=== PATIENT | male | born 1995 | race Caucasian/White ===

== ENCOUNTER 2020-05-05 12:13 | Emergency (ER) | payer OTHER ==
[2020-05-05] MEDS ORDERED: LORazepam 2 MG/ML SDV IV ONE (12:46)
[2020-05-05] MEDS ORDERED: Metoclopramide 10 MG/2 ML SDV IVPUSH ONE (12:46)
[2020-05-05] MEDS ORDERED: Dicyclomine 10 MG Cap PO ONE (12:47)
[2020-05-05] MEDS ORDERED: cloNIDine 0.1 MG Tab PO ONE (12:51)
--- NOTE | 2020-05-05 12:51 | EDM.PDOCBH ---
ED HPI GENERAL MEDICAL PROBLEM - General Chief Complaint: Drug or Alcohol Abuse Stated Complaint: WITHDRAWAL SYMPTOMS-FENTANYL Time Seen by Provider: 05/05/20 12:46 Source of Information: Reports: Patient History Limitations: Reports: No Limitations - History of Present Illness INITIAL COMMENTS - FREE TEXT/NARRATIVE: 25-year-old male of descent presents to the ED requesting help to stop using drugs. His drug of choice has been fentanyl for the last 6 months. He usually smokes this. He has been using kratom which can buy over the Internet on intermittent basis and last used yesterday. His found out about his drug abuse and made him make a decision either stop using drugs or divorce. Patient currently has been having 3-day history of nausea vomiting and diarrhea. He has had about 6 diarrhea stools in the last 14 hours yellow and loose. Has not been able to eat. He estimates a 20 pound weight loss over the last 6 months. He states he will drink alcohol on a rare very rare occasion. Will use marijuana intermittently. Denies any history of intravenous drug abuse. He is requesting help to stop using these drugs. Onset: Other (Using drugs for the last 6 months.) Duration: Chronic, Getting Worse (Side effect profile of withdrawing from narcotics is nausea vomiting diarrhea) Location: Reports: Abdomen ( and abdominal cramping pain. Vomiting diarrhea intractable.) Quality: Reports: Ache (Use abdominal aching pain) Severity: Severe Improves with: Reports: None Worsens with: Reports: Eating Context: Reports: Other (Cute withdrawal from fentanyl and kratom.). Denies: Activity, Exercise, Lifting, Sick Contact, Trauma Associated Symptoms: Reports: Loss of Appetite, Malaise, Nausea/Vomiting, Other (Current vomiting of bilious material). 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: Reports: Other (see below) (None.) Generalized Pain Score (Numeric/FACES): 7 - Related Data Allergies Allergy/AdvReac Type Severity Reaction Status Date / Time No Known Allergies Allergy Verified 05/05/20 12:38 Home Meds: Home Meds LORazepam [Ativan] 1 mg PO ASDIRECTED #13 tablet 05/05/20 [Rx] Ondansetron [Zofran] 4 mg BUCCAL Q6H PRN #8 tab 05/05/20 [Rx] cloNIDine [Catapres] 0.1 mg PO Q12HR #6 tab 05/05/20 [Rx] Past Medical History - Past Surgical History Musculoskeletal Surgical History: Reports: Other (See Below) Other Musculoskeletal Surgeries/Procedures:: R femur repair Social & Family History - Tobacco Use Tobacco Use Status *Q: Current Every Day Tobacco User Tobacco Use Within Last Twelve Months: Smokeless Tobacco (Usually at least 110/day.) Years of Tobacco use: 3 Packs/Tins Daily: 1 - Caffeine Use Caffeine Use: Reports: None - Recreational Drug Use Recreational Drug Use: Yes Drug Use in Last 12 Months: No Recreational Drug Type: Reports: Fentanyl, Marijuana/Hashish, Other (see below) Other Recreational Drug Type: kratom Recreational Drug Use Frequency: Daily - Living Situation & Occupation Living situation: Reports: ED ROS GENERAL - Review of Systems Review Of Systems: See Below Constitutional: Reports: Chills, Malaise, Weakness, Fatigue, Weight Loss. Denies: Fever HEENT: Reports: No Symptoms Respiratory: Reports: No Symptoms Cardiovascular: Reports: No Symptoms. Denies: Chest Pain, Blood Pressure Problem, Claudication, Dyspnea on Exertion, Edema, Lightheadedness Endocrine: Reports: Fatigue GI/Abdominal: Reports: Abdominal Pain, Diarrhea (68 loose diarrhea stools in the last 12 hours.), Decreased Appetite, Nausea, Vomiting (Intractable nausea and vomiting of bilious material without blood) : Reports: No Symptoms Musculoskeletal: Reports: No Symptoms Skin: Reports: No Symptoms Neurological: Reports: Dizziness, Other (Agitation restlessness) Psychiatric: Reports: Agitation, Mood Lability, Other (Hoarseness) Hematologic/Lymphatic: Reports: No Symptoms Immunologic: Reports: No Symptoms ED EXAM, BEHAVIORAL HEALTH - Physical Exam Exam: See Below Exam Limited By: No Limitations General Appearance: Anxious, Mild Distress, Other (Temperature is 36.6. Heart rate 96 and sinus respiratory is 18 with O2 sats of 98% room air BP 1 3983.) Eye Exam: Bilateral Eye: Conjunctival Injection (Mild bilaterally.), Normal Inspection, Other (No nystagmus) Throat/Mouth: Other Head: Atraumatic, Normocephalic (Is mildly dry and coated), Other Neck: Normal Inspection (No outward signs of head or facial trauma), Supple, Non-Tender, Full Range of Motion. No: Carotid Bruit, Lymphadenopathy (L), Lymphadenopathy (R) Respiratory/Chest: No Respiratory Distress, Lungs Clear, Normal Breath Sounds, No Accessory Muscle Use, Chest Non-Tender Cardiovascular: Normal Peripheral Pulses, Regular Rate, Rhythm, No Edema, No Gallop, No Murmur, No Rub GI/Abdominal: Normal Bowel Sounds, Soft, Non-Tender, No Organomegaly, No Mass, Pelvis Stable Back Exam: Normal Inspection, Full Range of Motion. No: CVA Tenderness (L), CVA Tenderness (R) Extremities: Normal Inspection, Normal Range of Motion, Non-Tender, No Pedal Edema Neurological: Alert, Normal Mood/Affect, CN II-XII Intact, Normal Cognition, Normal Gait, No Motor/Sensory Deficits, Oriented x 3 Psychiatric: Alert, Normal Affect, Normal Cognition Skin Exam: Warm, Dry, Intact, Normal color, No rash #1 Interpretation EKG Date: 05/05/20 Time: 13:59 Rhythm: NSR Rate (Beats/Min): 77 [place]: RAD-Right [place] Deviation (114 degrees) P-Wave: Present QRS: Other (Incomplete right bundle branch block pattern. Early R wave transition consider right ventricular hypertrophy pattern versus septal hypertrophy.) QT: Normal EKG Interpretation Comments: Abnormal ECG COURSE, BEHAVIORAL HEALTH COMP - Course Vital Signs: Last Vital Signs Temp 36.6 C 05/05/20 12:35 Pulse 96 05/05/20 12:35 Resp 18 05/05/20 12:35 BP 132/115 H 05/05/20 13:11 Pulse Ox 98 05/05/20 12:35 Orders, Labs, Meds: Active Orders 24 hr Category Date Time Status EKG Documentation Completion [RC] STAT Care 05/05/20 12:47 Active EKG Documentation Completion [RC] STAT Care 05/05/20 12:48 Active Dextrose 5%-Lactated Ringers 1,000 ml Med 05/05/20 13:00 Active IV ASDIRECTED Medication Orders Dextrose/Lactated Ringer's (Dextrose 5%-Lactated Ringers) 1,000 mls @ 999 mls/hr IV ASDIRECTED [facility] Admin: 05/05/20 13:14 Dose: 999 mls/hr Documented by: [facility] Laboratory Tests 05/05/20 05/05/20 05/05/20 Range/Units 13:00 13:00 13:00 WBC 7.68 (4.23-9.07) K/mm3 RBC 5.92 (4.63-6.08) M/mm3 Hgb 16.6 (13.7-17.5) gm/dl Hct 48.6 (40.1-51.0) % MCV 82.1 (79.0-92.2) fl MCH 28.0 (25.7-32.2) pg MCHC 34.2 (32.2-35.5) g/dl RDW Std Deviation 38.3 (35.1-43.9) fL Plt Count 407 H (163-337) K/mm3 MPV 9.2 L (9.4-12.3) fl Neut % (Auto) 72.8 H (34.0-67.9) % Lymph % (Auto) 17.1 L (21.8-53.1) % Mcdonough % (Auto) 9.0 (5.3-12.2) % Eos % (Auto) 0.5 L (0.8-7.0) Baso % (Auto) 0.3 (0.1-1.2) % Neut # (Auto) 5.60 H (1.78-5.38) K/mm3 Lymph # (Auto) 1.31 L (1.32-3.57) K/mm3 Mcdonough # (Auto) 0.69 (0.30-0.82) K/mm3 Eos # (Auto) 0.04 (0.04-0.54) K/mm3 Baso # (Auto) 0.02 (0.01-0.08) K/mm3 PT 11.4 (9.7-12.0) SECONDS INR 1.07 APTT 29.6 (21.7-31.4) SECONDS Sodium 141 (136-145) mEq/L Potassium 3.7 (3.5-5.1) mEq/L Chloride 106 (98-107) mEq/L Carbon Dioxide 23 (21-32) mEq/L Anion Gap 15.7 H (5-15) BUN 18 (7-18) mg/dL Creatinine 0.9 (0.7-1.3) mg/dL Est Cr Clr Drug Dosing 147.35 mL/min Estimated GFR (MDRD) > 60 (>60) mL/min BUN/Creatinine Ratio 20.0 H (14-18) Glucose 118 H (74-106) mg/dL Calcium 9.3 (8.5-10.1) mg/dL Magnesium 2.1 (1.8-2.4) mg/dl Total Bilirubin 0.8 (0.2-1.0) mg/dL AST 22 (15-37) U/L ALT 65 H (16-63) U/L Alkaline Phosphatase 74 (46-116) U/L Troponin I < 0.017 (0.00-0.056) ng/mL C-Reactive Protein < 0.2 (<1.0) mg/dL NT-Pro-B Natriuret Pep (0-125) pg/mL Total Protein 8.0 (6.4-8.2) g/dl Albumin 4.6 (3.4-5.0) g/dl Globulin 3.4 gm/dL Albumin/Globulin Ratio 1.4 (1-2) TSH 3rd Generation (0.358-3.74) uIU/mL Urine Color (Yellow) Urine Appearance (Clear) Urine pH (5.0-8.0) Ur Specific [place] (1.005-1.030) Urine Protein (Negative) Urine Glucose (UA) (Negative) Urine Ketones (Negative) Urine Occult Blood (Negative) Urine Nitrite (Negative) Urine Bilirubin (Negative) Urine Urobilinogen (0.2-1.0) Ur Leukocyte Esterase (Negative) Urine RBC (0-5) /hpf Urine WBC (0-5) /hpf Ur Epithelial Cells (0-5) /hpf Urine Bacteria (FEW) /hpf Urine Mucus (FEW) /hpf Salicylates (2.8-20) mg/dL Urine Opiates Screen (OSKXWM=467) Ur Buprenorphine Scrn (CUTOFF=10) Ur Oxycodone Screen (OCF0QB=943) Urine Methadone Screen (ZNI5WN=495) Ur Propoxyphene Screen (QBQIBE=654) Acetaminophen 0 L (10-30) ug/mL Ur Barbiturates Screen (GHCGDY=173) Ur Tricyclics Screen (MRSVGI=165) Ur Phencyclidine Scrn (CUTOFF=25) Ur Amphetamine Screen (MUBDJP=126) U Methamphetamines Scrn (NMXBKG=154) U Benzodiazepines Scrn (EUMGDN=358) U Cocaine Metab Screen (EAQXPR=124) U Marijuana (THC) Screen (CUTOFF=50) Ethyl Alcohol 0.00 (0.00) gm% Hepatitis C Antibody (NEGATIVE) 05/05/20 05/05/20 05/05/20 Range/Units 13:00 13:00 13:00 WBC (4.23-9.07) K/mm3 RBC (4.63-6.08) M/mm3 Hgb (13.7-17.5) gm/dl Hct (40.1-51.0) % MCV (79.0-92.2) fl MCH (25.7-32.2) pg MCHC (32.2-35.5) g/dl RDW Std Deviation (35.1-43.9) fL Plt Count (163-337) K/mm3 MPV (9.4-12.3) fl Neut % (Auto) (34.0-67.9) % Lymph % (Auto) (21.8-53.1) % Mcdonough % (Auto) (5.3-12.2) % Eos % (Auto) (0.8-7.0) Baso % (Auto) (0.1-1.2) % Neut # (Auto) (1.78-5.38) K/mm3 Lymph # (Auto) (1.32-3.57) K/mm3 Mcdonough # (Auto) (0.30-0.82) K/mm3 Eos # (Auto) (0.04-0.54) K/mm3 Baso # (Auto) (0.01-0.08) K/mm3 PT (9.7-12.0) SECONDS INR APTT (21.7-31.4) SECONDS Sodium (136-145) mEq/L Potassium (3.5-5.1) mEq/L Chloride (98-107) mEq/L Carbon Dioxide (21-32) mEq/L Anion Gap (5-15) BUN (7-18) mg/dL Creatinine (0.7-1.3) mg/dL Est Cr Clr Drug Dosing mL/min Estimated GFR (MDRD) (>60) mL/min BUN/Creatinine Ratio (14-18) Glucose (74-106) mg/dL Calcium (8.5-10.1) mg/dL Magnesium (1.8-2.4) mg/dl Total Bilirubin (0.2-1.0) mg/dL AST (15-37) U/L ALT (16-63) U/L Alkaline Phosphatase (46-116) U/L Troponin I (0.00-0.056) ng/mL C-Reactive Protein (<1.0) mg/dL NT-Pro-B Natriuret Pep 44 (0-125) pg/mL Total Protein (6.4-8.2) g/dl Albumin (3.4-5.0) g/dl Globulin gm/dL Albumin/Globulin Ratio (1-2) TSH 3rd Generation 1.586 (0.358-3.74) uIU/mL Urine Color (Yellow) Urine Appearance (Clear) Urine pH (5.0-8.0) Ur Specific [place] (1.005-1.030) Urine Protein (Negative) Urine Glucose (UA) (Negative) Urine Ketones (Negative) Urine Occult Blood (Negative) Urine Nitrite (Negative) Urine Bilirubin (Negative) Urine Urobilinogen (0.2-1.0) Ur Leukocyte Esterase (Negative) Urine RBC (0-5) /hpf Urine WBC (0-5) /hpf Ur Epithelial Cells (0-5) /hpf Urine Bacteria (FEW) /hpf Urine Mucus (FEW) /hpf Salicylates 0.6 L (2.8-20) mg/dL Urine Opiates Screen (CGGFQG=074) Ur Buprenorphine Scrn (CUTOFF=10) Ur Oxycodone Screen (UFV7FJ=074) Urine Methadone Screen (XBT1JA=629) Ur Propoxyphene Screen (FNTQRI=847) Acetaminophen (10-30) ug/mL Ur Barbiturates Screen (CFAULA=716) Ur Tricyclics Screen (YJQCZA=871) Ur Phencyclidine Scrn (CUTOFF=25) Ur Amphetamine Screen (GGKPRT=916) U Methamphetamines Scrn (SRJEWS=302) U Benzodiazepines Scrn (CQFKRJ=669) U Cocaine Metab Screen (REGTKY=259) U Marijuana (THC) Screen (CUTOFF=50) Ethyl Alcohol (0.00) gm% Hepatitis C Antibody Negative (NEGATIVE) 05/05/20 05/05/20 Range/Units 13:05 13:05 WBC (4.23-9.07) K/mm3 RBC (4.63-6.08) M/mm3 Hgb (13.7-17.5) gm/dl Hct (40.1-51.0) % MCV (79.0-92.2) fl MCH (25.7-32.2) pg MCHC (32.2-35.5) g/dl RDW Std Deviation (35.1-43.9) fL Plt Count (163-337) K/mm3 MPV (9.4-12.3) fl Neut % (Auto) (34.0-67.9) % Lymph % (Auto) (21.8-53.1) % Mcdonough % (Auto) (5.3-12.2) % Eos % (Auto) (0.8-7.0) Baso % (Auto) (0.1-1.2) % Neut # (Auto) (1.78-5.38) K/mm3 Lymph # (Auto) (1.32-3.57) K/mm3 [place]cd[place]ough # (Auto) (0.30-0.82) K/mm3 Eos # (Auto) (0.04-0.54) K/mm3 Baso # (Auto) (0.01-0.08) K/mm3 PT (9.7-12.0) SECONDS INR APTT (21.7-31.4) SECONDS Sodium (136-145) mEq/L Potassium (3.5-5.1) mEq/L Chloride (98-107) mEq/L Carbon Dioxide (21-32) mEq/L Anion Gap (5-15) BUN (7-18) mg/dL Creatinine (0.7-1.3) mg/dL Est Cr Clr Drug Dosing mL/min Estimated GFR (MDRD) (>60) mL/min BUN/Creatinine Ratio (14-18) Glucose (74-106) mg/dL Calcium (8.5-10.1) mg/dL Magnesium (1.8-2.4) mg/dl Total Bilirubin (0.2-1.0) mg/dL AST (15-37) U/L ALT (16-63) U/L Alkaline Phosphatase (46-116) U/L Troponin I (0.00-0.056) ng/mL C-Reactive Protein (<1.0) mg/dL NT-Pro-B Natriuret Pep (0-125) pg/mL Total Protein (6.4-8.2) g/dl Albumin (3.4-5.0) g/dl Globulin gm/dL Albumin/Globulin Ratio (1-2) TSH 3rd Generation (0.358-3.74) uIU/mL Urine Color Yellow (Yellow) Urine Appearance Clear (Clear) Urine pH 6.5 (5.0-8.0) Ur Specific [place] 1.010 (1.005-1.030) Urine Protein Negative (Negative) Urine Glucose (UA) Negative (Negative) Urine Ketones Negative (Negative) Urine Occult Blood Negative (Negative) Urine Nitrite Negative (Negative) Urine Bilirubin Negative (Negative) Urine Urobilinogen 0.2 (0.2-1.0) Ur Leukocyte Esterase Negative (Negative) Urine RBC 0-5 (0-5) /hpf Urine WBC 0-5 (0-5) /hpf Ur Epithelial Cells Not seen (0-5) /hpf Urine Bacteria Rare (FEW) /hpf Urine Mucus Not seen (FEW) /hpf Salicylates (2.8-20) mg/dL Urine Opiates Screen Negative (GTDOKN=429) Ur Buprenorphine Scrn Negative (CUTOFF=10) Ur Oxycodone Screen Negative (EGI3KI=482) Urine Methadone Screen Negative (JIR6XF=975) Ur Propoxyphene Screen Negative (QNVJRQ=261) Acetaminophen (10-30) ug/mL Ur Barbiturates Screen Negative (JNLWDE=425) Ur Tricyclics Screen Negative (TWZPSX=553) Ur Phencyclidine Scrn Negative (CUTOFF=25) Ur Amphetamine Screen Negative (VWOISU=328) U Methamphetamines Scrn Negative (DRAFXW=305) U Benzodiazepines Scrn Negative (OLKVIG=361) U Cocaine Metab Screen Negative (NKCIRX=022) U Marijuana (THC) Screen Negative (CUTOFF=50) Ethyl Alcohol (0.00) gm% Hepatitis C Antibody (NEGATIVE) Medications Generic Name Dose Route Start Last Admin Trade Name Freq PRN Reason Stop Dose Admin Dextrose/Lactated Ringer's 1,000 mls @ 999 mls/hr 05/05/20 13:00 05/05/20 13:14 Dextrose 5%-Lactated Ringers IV 999 mls/hr ASDIRECTED HOWARD Administration Discontinued Medications Generic Name Dose Route Start Last Admin Trade Name Freq PRLucius Reason Stop Dose Admin Clonidine HCl 0.1 mg 05/05/20 12:51 05/05/20 13:11 Catapres PO 05/05/20 12:52 0.1 mg ONETIME ONE Administration Dicyclomine HCl 20 mg 05/05/20 12:47 05/05/20 13:11 Bentyl PO 05/05/20 12:48 20 mg ONETIME ONE Administration Lorazepam 1.5 mg 05/05/20 12:46 05/05/20 13:07 Ativan IV 05/05/20 12:47 1.5 mg ONETIME ONE Administration Metoclopramide HCl 10 mg 05/05/20 12:46 05/05/20 13:10 Reglan IVPUSH 05/05/20 12:47 10 mg ONETIME ONE Administration Re-Assessment/Re-Exam: 25-year-old male of descent presents to the ED requesting help to stop using drugs. Patient has been using fentanyl by the way of heating it and smoking it over the last 6 months. He uses kratom that he can get over the Internet off and on with the last used yesterday. Occasional rare alcohol use. Chews tobacco at least 110 daily. Occasional marijuana use. He is currently on third day of withdrawal from narcotics. He did use some kratom yesterday. He has intractable nausea vomiting and diarrhea. Not able to eat or drink. 6-8 loose diarrhea yellow stools in the last 12 hours. He is mildly diffusely tremulous. He is alert oriented and able to give a useful history. Plan IV D5 LR at open. Given Ativan 1.5 mg IV. Reglan 10 mg IV for nausea relief. Bentyl 20 mg p.o. to help ease up abdominal cramping pain clonidine 0.1 mg p.o. Routine labs to be collected including a urine drug screen serum acetaminophen serum ethanol serum salicylate levels. Re-Assessment/Re-Exam Date: 05/05/20 (White coat white blood cell count is 7.68. The differential shows 72.8% neutrophils. Hemoglobin is 16.6 with hematocrit of 48.6 indicating some degree of hemoconcentration. MCV is normal at 82.1. Platelet count slightly elevated 407,000. PT is 11.4 with an INR of 1.07. PTT is 29.6.) Re-Assessment/Re-Exam Time: 14:24 (Reports he is feeling better. His is willing to discharge his medications at home and he reports that she is a PA although I cannot confirm this. 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 At this time there is no beds in the hospital and he was not real keen on going to the residential crisis center. The plan will be to place him on Ativan 1 mg 3 times daily for 2 days then 1 mg twice daily for another 2 days. Clonidine 0.1 mg twice daily morning and bedtime for 3 days. This should get him through the acute phase of opiate withdrawal) Departure - Departure Time of Disposition: 14:30 Disposition: Home, Self-Care 01 Condition: Fair Clinical Impression: Opioid abuse - Discharge Information *PRESCRIPTION DRUG MONITORING PROGRAM REVIEWED*: Not Applicable *COPY OF PRESCRIPTION DRUG MONITORING REPORT IN PATIENT HELEN: Not Applicable Prescriptions: LORazepam [Ativan] 1 mg PO ASDIRECTED #13 tablet cloNIDine [Catapres] 0.1 mg PO Q12HR #6 tab Ondansetron [Zofran] 4 mg BUCCAL Q6H PRN #8 tab PRN Reason: nausea or vomiting Referrals: PCP,None [Primary Care Provider] - Forms: ED Department Discharge Additional Instructions: Evaluation in the emergency room today in regards to fentanyl abuse for the last 6 months. Also intermittent use of kratom which she purchased over the Internet. Request through the emergency room to get help to stop using drugs. Lab test today revealed no serious abnormalities with the liver kidneys pancreas or lungs. You have opted for outpatient treatment with your providing her medications for you over the next 4 days which will get you through the severe phase of opiate withdrawal which is usually 7 days. You will need to take Ativa n 1 mg tablet every 8 hours with the next tablet due at 4 PM today and the next one at midnight. It is to be taken 3 times daily for 2 more days and then twice daily for 2 more days. You will also use clonidine 0.1 mg at bedtime tonight then 1 tablet twice daily for the next 3 days to help with opioid withdrawal. Must drink plenty of fluids such as Gatorade or Powerade to help wash the drugs from your system and try and start to eat a regular diet. Zofran medication has also been supplied 4 mg tablet under the tongue every 4-6 hours as necessary for any further nausea or vomiting relief. You should stay away from all dairy products and no apple juice or grape juice until the diarrhea has quit and the stools are beginning to be formed up. Further problems occur suggest contacting [facility] services where they have alcohol and drug treatment programs. Number is [phone]. Sepsis Event Note (ED) - Evaluation Sepsis Screening Result: No Definite Risk - Focused Exam Vital Signs: Vital Signs Temp Pulse Resp BP BP Pulse Ox 05/05/20 13:11 132/115 H 05/05/20 12:35 36.6 C 96 18 139/83 98 - My Orders Last 24 Hours: My Active Orders 05/05/20 12:47 EKG Documentation Completion [RC] STAT 05/05/20 12:48 EKG Documentation Completion [RC] STAT 05/05/20 13:00 Dextrose 5%-Lactated Ringers 1,000 ml IV ASDIRECTED - Assessment/Plan Last 24 Hours: My Active Orders 05/05/20 12:47 EKG Documentation Completion [RC] STAT 05/05/20 12:48 EKG Documentation Completion [RC] STAT 05/05/20 13:00 Dextrose 5%-Lactated Ringers 1,000 ml IV ASDIRECTED
[2020-05-05] MEDS ORDERED: Dextrose 5%-Lactated Ringers 1,000 ML IV SCH (13:00)
[2020-05-05 14:11] LABS: ACETAMINOPHEN 0 ug/mL (10-30)
== END 2020-05-05 14:45 | disposition home or self-care (01) ==
LOC: JD.ED 12:13
DX: F11.10 Opioid abuse, uncomplicated (principal); F17.210 Nicotine dependence, cigarettes, uncomplicated; F17.290 Nicotine dependence, other tobacco product, uncomplicated
CPT/HCPCS: 36415; 80053; 80306; 80307; 81001; 83735; 83880; 84443; 84484; 85025; 85610; 85730; 86140; 86803; 93005; 99284; A9270; J2060; J2765; J7121; 93010

== ENCOUNTER 2021-04-15 14:46 | Emergency (ER) | payer OTHER ==
--- NOTE | 2021-04-15 14:51 | EDM.PDOCBH ---
ED HPI GENERAL MEDICAL PROBLEM - General Chief Complaint: Drug or Alcohol Abuse Stated Complaint: [facility] Time Seen by Provider: 04/15/21 14:48 Source of Information: Reports: Patient, EMS History Limitations: Reports: Other (Vague responses to questions.) - History of Present Illness INITIAL COMMENTS - FREE TEXT/NARRATIVE: 26-year-old male presents to the ED per [facility] after someone called 911 and indicated the male was unresponsive. Police arrived on scene before the ambulance and found a young male unresponsive and not breathing. It was apparent that he had overdosed on narcotic. He therefore received 8 mg of Narcan prior to the environmental intern arrival and responded to this vigorously awaking from unresponsive state able to speak and was markedly diaphoretic cool and clammy. On questioning he states he crushed up a 30 mg oxycontin tablet and he believes it was mixed with fentanyl and he snorted this. He was walking out of his apartment door apparently when he snorted the medication. Police identified that he was sitting in a chair and witnessed him go unresponsive and at that time administered the Narcan for a total of 8 mg which he responded to. Patient is able to provide me a history although he is somewhat evasive and vague here in the emergency room. He is extremely diaphoretic. Onset: Today, Sudden Onset Date: 04/15/21 Onset Time: 14:10 Duration: Minutes:, Improving Location: Reports: Other (Witnessed syncope collapse with respiratory depression or arrest after snorting OxyContin 30 mg tablet likely mixed with fentanyl) Quality: Reports: Other Severity: Severe (Narcotic overdose) Improves with: Reports: Other (Improved after Narcan was administered intranasally by police officers for a total of 8 mg) Context: Reports: Other (Patient readily admits to snorting OxyContin tablet that he had crushed up and suspect it was admixed with fentanyl.). Denies: Activity, Exercise, Lifting, Sick Contact, Trauma Associated Symptoms: Reports: Confusion, Other (Cold clammy diaphoresis.). 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 [No Known Home Meds] 04/15/21 [History] Past Medical History - Past Surgical History Musculoskeletal Surgical History: Reports: Other (See Below) Other Musculoskeletal Surgeries/Procedures:: R femur repair Social & Family History - Caffeine Use Caffeine Use: Reports: None - Living Situation & Occupation Living situation: Reports: ED ROS GENERAL - Review of Systems Review Of Systems: See Below Constitutional: Reports: Malaise, Fatigue, Decreased Appetite. Denies: Fever, Chills HEENT: Reports: No Symptoms Respiratory: Denies: Shortness of Breath, Wheezing, Pleuritic Chest Pain, Cough Cardiovascular: Denies: Chest Pain, Blood Pressure Problem Endocrine: Reports: Fatigue GI/Abdominal: Reports: Nausea. Denies: Abdominal Pain, Anorexia : Reports: No Symptoms Musculoskeletal: Reports: No Symptoms Skin: Reports: No Symptoms Neurological: Reports: No Symptoms Psychiatric: Reports: Other (Substance abuse) ED EXAM, BEHAVIORAL HEALTH - Physical Exam Exam: See Below Exam Limited By: Other (Vague and somewhat evasive historian) General Appearance: Alert (Walked from the ambulance into the trauma bay), Other (Is obviously diaphoretic with beads of sweat on his forehead and his clothing is soaked with sweat. Temperature is 36.8 degrees heart rate 100 and sinus respiratory is 20 with O2 sats of 96% room air. BP 146/90) Eye Exam: Bilateral Eye: Normal Inspection, PERRL (Pupils react to light but are somewhat sluggish.) Throat/Mouth: Normal Inspection, Normal Lips, Normal Oropharynx, Other (No injury to his lips or dentition) Head: Atraumatic ( or tongue.), Normocephalic, Other (Patient has a 1 cm superficial laceration just anterior to his left ear tragus. He will be cleansed and topical antibiotic placed. Not deep enough to require sutures.) Neck: Normal Inspection, Supple, Full Range of Motion Respiratory/Chest: No Respiratory Distress, Lungs Clear, Normal Breath Sounds, No Accessory Muscle Use Cardiovascular: Normal Peripheral Pulses, Regular Rate, Rhythm, No Edema, No Gallop, No Murmur, No Rub GI/Abdominal: Normal Bowel Sounds, Soft, Non-Tender, No Organomegaly, No Distention, Pelvis Stable Back Exam: Normal Inspection Neurological: CN II-XII Intact, Normal Gait, No Motor/Sensory Deficits, Oriented x 3 Psychiatric: Alert, Other (Flat affect) Skin Exam: Diaphoretic COURSE, BEHAVIORAL HEALTH COMP - Course Vital Signs: Last Vital Signs Temp 36.8 C 04/15/21 14:49 Pulse 100 04/15/21 14:49 Resp 20 04/15/21 14:49 BP 146/90 H 04/15/21 14:49 Pulse Ox 96 04/15/21 14:49 Orders, Labs, Meds: Medications Discontinued Medications Generic Name Dose Route Start Last Admin Trade Name Ryan PRN Reason Stop Dose Admin Sodium Chloride 1,000 mls @ 999 mls/hr 04/15/21 15:00 04/15/21 15:24 Normal Saline IV 999 mls/hr ASDIRECTED HOWARD Administration Ondansetron HCl 4 mg 04/15/21 15:05 04/15/21 15:24 Ondansetron 4 Mg/2 Ml Sdv IVPUSH 04/15/21 15:06 4 mg ONETIME ONE Administration Re-Assessment/Re-Exam: 26-year-old male presents to the ED after suffering a narcotic overdose. Patient had ground up a OxyContin 30 mg tablets and likely it was mixed with fentanyl and he snorted this shortly before arrival. Is unclear who called 911. [facility] police officers attended the scene first and identified the patient to be sitting in a chair and then becoming more drowsy and then passed out with suspect respiratory arrest. He was given 8 mg in total of Narcan intranasally by police officers then responded to this treatment by regaining consciousness. Paramedics arrived on scene and were able to get him on a gurney and bring him to the ED. He walked out of the ambulance bay into the trauma bay. He admits to snorting the above medications and he suspects it was mixed with fentanyl. Patient will be monitored in the ED at this time for any further adverse effects of narcotic. He is nauseated. IV is to be normal saline at 150 mils per hour. Zofran 4 mg IV for nausea relief. Re-Assessment/Re-Exam Date: 04/15/21 Re-Assessment/Re-Exam Time: 15:35 (His vital signs have remained stable. He is not near as agitated as he was upon presentation and nausea is improved. Heart rate is currently 96 and sinus respiratory rate is 18 with O2 sats of 96% room air. Blood pressure is 136/73. He is alert oriented and answers all questions appropriately. He will be discharged from the hospital and plans on calling his to provide him a ride home.) Departure - Departure Time of Disposition: 15:45 Disposition: Home, Self-Care 01 Condition: Fair Clinical Impression: Opioid abuse Opiate or related narcotic overdose Qualifiers: Encounter type: initial encounter Injury intent: accidental or unintentional Qualified Code(s): T40.601A - Poisoning by unspecified narcotics, accidental (unintentional), initial encounter - Discharge Information *PRESCRIPTION DRUG MONITORING PROGRAM REVIEWED*: Not Applicable *COPY OF PRESCRIPTION DRUG MONITORING REPORT IN PATIENT HELEN: Not Applicable Instructions: Opioid Overdose Referrals: PCP,None [Primary Care Provider] - Forms: ED Department Discharge Additional Instructions: Evaluation in the emergency room today after suffering a narcotic overdose. By history you crushed up a OxyContin 30 mg tablet which was likely laced with fentanyl and started this drug into your naris. Someone called 911 and police arrived before the ambulance. They identified you to be sitting in a chair diaphoretic and then you slumped over his and stop breathing suffering overcall respiratory arrest. You were resuscitated with Narcan 8 mg in total by police officers before paramedics arrival. Therefore the police officers brought you back to life with the aid of Narcan which is a reversal agent for opioids. You were monitored in the emergency room for the next hour and vital signs remained stable. You will therefore be discharged to home. You will likely feel sleepy tired and somewhat agitated for the next 4 to 6 hours after overdose. If you believe you have a problem with substance abuse please call [facility] which offers an alcohol consultation and treatments. The phone number is [phone].
[2021-04-15] MEDS ORDERED: Sodium Chloride 0.9% 1,000 ML IV SCH (15:00)
[2021-04-15] MEDS ORDERED: Ondansetron 4 MG/2 ML SDV IVPUSH ONE (15:05)
== END 2021-04-15 16:08 | disposition home or self-care (01) ==
LOC: JD.ED 14:46
DX: T40.601A Poisoning by unspecified narcotics, accidental (unintentional), initial encounter (principal); F11.10 Opioid abuse, uncomplicated
CPT/HCPCS: 96374; 99284; J2405; J7030

== ENCOUNTER 2024-03-31 08:21 | Emergency (ER) | payer BC, OTHER ==
[2024-03-31] MEDS ORDERED: Sodium Chloride 0.9% 10 ML Syringe FLUSH PRN (09:05)
[2024-03-31] MEDS: Sodium Chloride 0.9% 1,000 ML IV ONE (09:27)
[2024-03-31 09:36] LABS: BASOPHILS PERCENT AUTO 0.3 % (0.0-1.0); EOSINOPHILS PERCENT AUTO 0.1 % (0.0-6.0); HEMATOCRIT 42.8 % (42.0-52.0); HEMOGLOBIN 14.6 gm/dl (14.0-18.0); IMMATURE GRAN ABSOLUTE AUTO 0.15 K/mm3 (0.00-0.05); IMMATURE GRAN PERCENT AUTO 0.9 % (0.0-0.4); LYMPHOCYTES ABSOLUTE AUTO 0.5 K/mm3 (1.0-4.8); LYMPHOCYTES PERCENT AUTO 3.4 % (24.0-44.0); MEAN CORPUSCULAR HEMOGLOBIN 28.5 pg (28.0-32.0); MEAN CORPUSCULAR HGB CONC 34.1 g/dl (32.0-36.0); MEAN CORPUSCULAR VOLUME 83.4 fl (83.0-99.0); MEAN PLATELET VOLUME 9.6 fl (9.4-12.4); MONOCYTES ABSOLUTE AUTO 1.2 K/mm3 (0.0-0.8); MONOCYTES PERCENT AUTO 7.8 % (0.0-8.0); NEUTROPHILS ABSOLUTE AUTO 13.9 K/mm3 (1.8-7.7); NEUTROPHILS PERCENT AUTO 87.5 % (41.0-71.0); PLATELET COUNT,PLT 237 K/mm3 (150-400); RED BLOOD CELL COUNT 5.13 M/mm3 (4.52-5.90); WHITE BLOOD CELL COUNT,WBC 15.85 K/mm3 (3.9-11.3)
[2024-03-31 10:01] LABS: A/G RATIO 0.7 (1-2); ANION GAP 14.6 (5-15); BILIRUBIN TOTAL 0.8 mg/dL (0.2-1.0); BUN/CREATININE RATIO 9.2 (14-18); CALCIUM 8.8 mg/dL (8.5-10.1); CREATININE 1.2 mg/dL (0.7-1.3); EST CRCL DRUG DOSING (CG) 103.7 mL/min; POTASSIUM,K 3.6 mEq/L (3.5-5.1); PROTEIN TOTAL,TP 7.4 g/dl (6.4-8.2)
[2024-03-31 10:24] LABS: APPEARANCE,URINE CLEAR (Clear); BILIRUBIN,URINE NEGATIVE (Negative); COLOR,URINE YELLOW (Yellow); GLUCOSE,URINE NEGATIVE (Negative); KETONES,URINE NEGATIVE (Negative); LEUKOCYTE ESTERASE,URINE NEGATIVE (Negative); NITRITE,URINE NEGATIVE (Negative); OCCULT BLOOD,URINE TRACE-LYSED (Negative); PH,URINE 6.5 (5.0-8.0); PROTEIN,URINE TRACE (Negative); UROBILINOGEN,URINE 0.2 (0.2-1.0)
[2024-03-31 10:26] LABS: CORONAVIRUS COVID-19 NAA NEGATIVE (NEGATIVE); INFLUENZA A NAA NEGATIVE (NEGATIVE); RESPIRATORY SYNCYTIAL VIR NAA NEGATIVE (NEGATIVE)
[2024-03-31 10:46] LABS: BACTERIA,URINE FEW /hpf (FEW); MUCUS,URINE FEW /hpf (FEW); SQUAMOUS EPITHELIAL CELLS,UR 0-5 /hpf (0-5); WBC,URINE 0-5 /hpf (0-5)
== END 2024-03-31 11:08 | disposition home or self-care (01) ==
LOC: JD.ED 08:21
DX: R07.9 Chest pain, unspecified (principal); J06.9 Acute upper respiratory infection, unspecified
CPT/HCPCS: 0241U; 36415; 71045; 80053; 81001; 83735; 84484; 85025; 87040; 93005; 96360; 99285; J7030